=== PATIENT | male | born 1990 | race Two or more races ===

== ENCOUNTER 2021-03-08 20:49 | Emergency (ER) | payer OTHER ==
[~2021-03-08] VITALS: Ht 182.9 cm; Wt 68.5 kg
--- NOTE | 2021-03-08 22:20 | NUR ---
pt A/O x3 states pain to back. pt denies c/p or sob, able to speak in complete sentences.
--- NOTE | 2021-03-08 22:23 | NUR ---
Dr. Leblanc in room for [id number].
[2021-03-08] MEDS ORDERED: KETOROLAC TROMETHAMINE 15 MG INJ IM ONE (22:30)
--- NOTE | 2021-03-08 22:42 | NUR ---
pt taken to cat scan.
[2021-03-08] MEDS ORDERED: KETOROLAC TROMETHAMINE 15 MG INJ ONE (22:46)
--- NOTE | 2021-03-08 23:14 | NUR ---
pt has returned from cat scan.
[2021-03-08] MEDS ORDERED: HYDROCODONE/APAP 5-325MG TABLET PO ONE (23:30)
[2021-03-08] MEDS ORDERED: HYDROCODONE/APAP 5-325MG TABLET ONE (23:46)
[2021-03-09] MEDS ORDERED: IBUP-1957 PO (00:04)
[2021-03-09 00:18] VITALS: BP 131/80
== END 2021-03-09 00:19 | disposition home or self-care (01) ==
LOC: ER 20:59
DX: M54.9 Dorsalgia, unspecified (principal); M54.2 Cervicalgia; Z91.81 History of falling
CPT/HCPCS: 72125; 72128; 72131; 72170; 96372; 99285; J1885; A4663